=== PATIENT | female | born 1970 | race Caucasian/White ===

== ENCOUNTER 2018-07-09 16:10 | Emergency (ER) | payer OTHER ==
[~2018-07-09] VITALS: Ht 157.5 cm; Wt 110.0 kg
[2018-07-09 16:30] VITALS: BP 124/79
[2018-07-09] MEDS ORDERED: DIPH,PERTUSS(ACELL),TET VAC/PF 0.5 ML IM-VACC ONE ×2 (16:55→17:00)
[2018-07-09] MEDS ORDERED: LIDOCAINE-MPF 1%, 5ML ONE (16:56)
[2018-07-09] MEDS ORDERED: LIDOCAINE-MPF 1%, 5ML INFIL ONE (17:00)
[2018-07-09] MEDS ORDERED: BACITRACIN ZINC OINT 500U/GM, 0.9 GM ONE (17:24)
--- NOTE | 2018-07-09 17:44 | NUR ---
Patient/Caregiver given discharge instructions and they have confirmed that they understand the instructions. Patient ambulatory with steady gait.
== END 2018-07-09 17:45 | disposition home or self-care (01) ==
LOC: ED 17:00
DX: L60.0 Ingrowing nail (principal)
CPT/HCPCS: 11730; 90471; 90715